=== PATIENT | female | born 1995 | race Caucasian/White ===

== ENCOUNTER 2017-01-04 07:39 | Emergency (ER) | payer SELFPAY ==
[2017-01-04] MEDS ORDERED: Acetaminophen/HYDROcodone 325-5 MG Tab PO ONE ×2 (08:05→09:14)
--- NOTE | 2017-01-04 08:11 | EDM.PDOC ---
ED HPI GENERAL MEDICAL PROBLEM - General Stated Complaint: RIGHT SIDE OF FACE PAINFUL AND SWOLLEN Time Seen by Provider: 01/04/17 07:40 Source of Information: Reports: Patient, Family History Limitations: Reports: Other (r jaw pain with swelling) - History of Present Illness INITIAL COMMENTS - FREE TEXT/NARRATIVE: 21 y.o.w.f. AB4, came to the ed due to pain and swelling of her r jaw for 2 days. No trauma, no F/C. Denies tooth ache. Has H/O [place], dx'd 1 year ago. No other acute medical issue at this time. Pt took tylenol yesterday, which helped initially, Ice makes pain worse. 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 Rt side of face Pain Score (Numeric/FACES): 8 - Related Data Allergies Allergy/AdvReac Type Severity Reaction Status Date / Time No Known Allergies Allergy Verified 01/04/17 07:57 Home Meds: Home Meds Amoxicillin/Potassium Clav [Augmentin 875-125 Tablet] 1 each PO BID #20 tablet 01/04/17 [Rx] ED ROS ENT - Review of Systems Review Of Systems: See Below Constitutional: Reports: No Symptoms HEENT: Reports: Other (right jaw swelling) Respiratory: Reports: No Symptoms Cardiovascular: Reports: No Symptoms Endocrine: Reports: No Symptoms GI/Abdominal: Reports: No Symptoms : Reports: No Symptoms Musculoskeletal: Reports: No Symptoms Skin: Reports: No Symptoms Neurological: Reports: No Symptoms Psychiatric: Reports: No Symptoms Hematologic/Lymphatic: Reports: No Symptoms Immunologic: Reports: No Symptoms ED EXAM, ENT - Physical Exam Exam: See Below Exam Limited By: Other (right jaw sweling) General Appearance: Alert, WD/WN, Moderate Distress Eye Exam: Bilateral Eye: Normal Inspection Ears: Normal External Exam, Normal Canal, Hearing Grossly Normal Nose: Normal Inspection, Normal Mucousa, No Blood Mouth/Throat: Normal Gums, Normal Lips, Normal Oropharynx, Normal Teeth Head: Facial Swelling Neck: Normal Inspection, Supple, Non-Tender, Full Range of Motion Respiratory/Chest: No Respiratory Distress, Lungs Clear, Normal Breath Sounds, No Accessory Muscle Use, Chest Non-Tender Cardiovascular: Normal Peripheral Pulses, Regular Rate, Rhythm, No Edema, No Gallop, No JVD, No Murmur GI/Abdominal: Normal Bowel Sounds, Soft, Non-Tender, No Organomegaly (Female) Exam: Deferred Rectal (Female) Exam: Deferred Back: Normal Inspection, Full Range of Motion Extremities: Normal Inspection, Normal Range of Motion, Non-Tender, No Pedal Edema Neurological: Alert, Oriented, CN II-XII Intact, Normal Cognition, Normal Gait Psychiatric: Normal Affect, Normal Mood Skin: Warm, Dry, Normal Color, Rash (r jaw with swelling) Lymphatic: Adenopathy ((?) r jaw) Course - Vital Signs Text/Narrative:: 21 y.o.w.f. AB4, came to the ed due to pain and swelling of her r jaw for 2 days. No trauma, no F/C. Denies tooth ache. Has H/O [place], dx'd 1 year ago. No other acute medical issue at this time. Pt took tylenol yesterday, which helped initially, Ice makes pain worse. BP 116/81 Pulse 102 )2 sat 100% on RA Temp 36.3 PE: Swelling of right parotid gland Labs: NL WBC, Amylase was 174, Na 134 K 3.3 Impression: Parotitis, Hypokalemia, Tx: Vicodin (SE were explained to patient), [place] 8.57 am [facility] [place]x,, pain control, observe a few days, then U/S, CT may not be necessary. Reexam: Improved Plan: D/C home with instructions Last Recorded V/S: Last Vital Signs Temp 36.9 C 01/04/17 09:26 Pulse 77 01/04/17 09:26 Resp 17 01/04/17 09:26 BP 100/60 01/04/17 09:26 Pulse Ox 100 01/04/17 09:26 - Orders/Labs/Meds Labs: Laboratory Tests 01/04/17 01/04/17 01/04/17 Range/Units 08:10 08:10 08:10 WBC 8.9 (4.5-12.0) X10-3/uL RBC 3.81 (3.23-5.20) x10(6)uL Hgb 11.3 L (11.5-15.5) g/dL Hct 32.8 (30.0-51.3) % MCV 86.1 (80-96) fL MCH 29.6 (27.7-33.6) pg MCHC 34.3 (32.2-35.4) g/dL RDW 14.3 (11.5-15.5) % Plt Count 276 (125-369) X10(3)uL MPV 8.0 (7.4-10.4) fL Neut % (Auto) 79.8 (46-82) % Lymph % (Auto) 12.5 L (13-37) % [place] % (Auto) 6.9 (4-12) % Eos % (Auto) 0 L (1.0-5.0) % Baso % (Auto) 0 (0-2) % Neut # (Auto) 7.2 (1.6-8.3) # Lymph # (Auto) 1.1 (0.6-5.0) # Treasure # (Auto) 0.6 (0.0-1.3) # Eos # (Auto) 0.0 (0.0-0.8) # Baso # (Auto) 0.0 (0.0-0.2) # Sodium 134 L (135-145) mmol/L Potassium 3.3 L (3.5-5.3) mmol/L Chloride 103 (100-110) mmol/L Carbon Dioxide 22 L (23-29) mmol/L BUN 5 (5-20) mg/dL Creatinine 0.5 L (0.6-1.3) mg/dL Est Cr Clr Drug Dosing 144.76 mL/min Estimated GFR (MDRD) > 60 (>60) BUN/Creatinine Ratio 10.0 (9-20) Glucose 113 (80-116) mg/dL Calcium 8.6 (8.6-10.2) mg/dL Amylase 177 H (28-100) U/L HCG, Quant 537180 (2.0 - ) mIU/mL Monoscreen (NEGATIVE) 01/04/17 Range/Units 08:10 WBC (4.5-12.0) X10-3/uL RBC (3.23-5.20) x10(6)uL Hgb (11.5-15.5) g/dL Hct (30.0-51.3) % MCV (80-96) fL MCH (27.7-33.6) pg MCHC (32.2-35.4) g/dL RDW (11.5-15.5) % Plt Count (125-369) X10(3)uL MPV (7.4-10.4) fL Neut % (Auto) (46-82) % Lymph % (Auto) (13-37) % Treasure % (Auto) (4-12) % Eos % (Auto) (1.0-5.0) % Baso % (Auto) (0-2) % Neut # (Auto) (1.6-8.3) # Lymph # (Auto) (0.6-5.0) # Treasure # (Auto) (0.0-1.3) # Eos # (Auto) (0.0-0.8) # Baso # (Auto) (0.0-0.2) # Sodium (135-145) mmol/L Potassium (3.5-5.3) mmol/L Chloride (100-110) mmol/L Carbon Dioxide (23-29) mmol/L BUN (5-20) mg/dL Creatinine (0.6-1.3) mg/dL Est Cr Clr Drug Dosing mL/min Estimated GFR (MDRD) (>60) BUN/Creatinine Ratio (9-20) Glucose (80-116) mg/dL Calcium (8.6-10.2) mg/dL Amylase (28-100) U/L HCG, Quant (2.0 - ) mIU/mL Monoscreen Negative (NEGATIVE) Meds: Medications Discontinued Medications Generic Name Dose Route Start Last Admin Trade Name Freq PRN Reason Stop Dose Admin Hydrocodone Bitart/Acetaminophen 1 tab 01/04/17 08:05 01/04/17 08:24 [place] 325-5 Mg PO 01/04/17 08:06 1 tab ONETIME ONE Administration Amoxicillin/Clavulanate Potassium 1 tab 01/04/17 09:10 01/04/17 09:18 Augmentin 875 Mg/125 Mg PO 01/04/17 09:11 1 tab ONETIME ONE Administration Departure - Departure Time of Disposition: 09:19 Disposition: Home, Self-Care 01 Condition: Good Clinical Impression: Acute parotitis, Hypokalemia Qualifiers: Weeks of gestation: 8 weeks Qualified Code(s): Z3A.08 - 8 weeks gestation of - Discharge Information Prescriptions: Amoxicillin/Potassium Clav [Augmentin 875-125 Tablet] 1 each PO BID #20 tablet Instructions: Parotitis, [id number] Referrals: PCP,None [Primary Care Provider] - Forms: ED Department Discharge Additional Instructions: Please apply warm heat to the affected area, please take the pain meds and Abx as recommended, Sonogram of the Parotid Gland this Thursday, F/U, come back to the ED if your symptoms get worse acutely. Please eat bananas and potatoes to increase the potassium.
[2017-01-04] MEDS ORDERED: Amoxicillin/Clavulanate K 875-125 MG Tab PO ONE (09:10)
== END 2017-01-04 09:30 | disposition home or self-care (01) ==
LOC: FB.ED 07:39
DX: K11.20 Sialoadenitis, unspecified (principal); O99.611 Diseases of the digestive system complicating pregnancy, first trimester; O99.281 Endocrine, nutritional and metabolic diseases complicating pregnancy, first trimester; E87.6 Hypokalemia; Z3A.08 8 weeks gestation of pregnancy
CPT/HCPCS: 36415; 80048; 82150; 84702; 85025; 86308; 99283; A9270